=== PATIENT | female | born 1965 | race Caucasian/White ===

== ENCOUNTER 2018-09-18 11:43 | Day surgery (SDC) | payer OTHER ==
[~2018-09-18] VITALS: Ht 157.5 cm; Wt 66.3 kg
[2018-09-18 12:29] VITALS: Ht 157.5 cm; Wt 66.3 kg
[2018-09-18] MEDS ORDERED: FAMOTIDINE (12:40)
[2018-09-18] MEDS ORDERED: NITROGLYCERIN (12:40)
[2018-09-18] MEDS ORDERED: MULTIVITAMIN (12:40)
[2018-09-18] MEDS ORDERED: CETIRIZINE (12:40)
[2018-09-18] MEDS ORDERED: METFORMIN (12:40)
[2018-09-18 13:19] VITALS: BP 151/75; PULSE 62; RESP 18
--- NOTE | 2018-09-18 14:18 | PREAC ---
Date/Time of Note Date/Time of Note DATE: 09/18/18 TIME: 14:17 Anesthesia Eval and Record Evaluation Time Pre-Procedure Interview DATE: 09/18/18 TIME: 14:17 Age 52 Sex female NPO: 8 hrs Preoperative diagnosis heartburn, colorectal ca Planned procedure EGD colonoscopy Past Medical History Past Medical History: Includes Endo: Diabetes Surgery & Anesthesia Issues No known issue Meds Anticoagulation: No Beta Escobar within 24 hr: No Reason Beta Escobar not given: Pt. not on B-Escobar Reported Medications [Multivitamin] No Conflict Check 09/18/18 [Nitroglycerin] No Conflict Check 09/18/18 [Cetirizine] No Conflict Check 09/18/18 [Famotidine] No Conflict Check 09/18/18 [Metformin] No Conflict Check 09/18/18 Discontinued Reported Medications [None] No Conflict Check 01/24/10 Meds reviewed: Yes Allergies Coded Allergies: No Known Allergies (Verified Allergy, Unknown, 09/18/18) Allergies Reviewed: Yes Labs/Studies Labs Reviewed: Reviewed by anesthesiologist test: N/A Studies: ECG (n/a), CXR (n/a) Pre-procedure Exam Last vitals Vital Signs Date Temp Pulse Resp B/P (MAP) Pulse Ox O2 O2 Flow FiO2 Time Delivery Rate 09/18/18 97.9 62 18 151/75 97 Room Air 13:19 (100) Airway: Adequate mouth opening Mallampati: Mallampati I Teeth: Normal Lung: Normal Heart: Normal ASA Physical Status ASA physical status: 2 Emergency: None Planned Anesthetic General/MAC: MAC Planned Pain Management Parenteral pain med Pre-operative Attestations Prior to commencing anesthesia and surgery, the patient was re-evaluated, there was verification of: *The patient's identity *The results of appropriate recent lab work and preoperative vital signs *The above evaluation not changing prior to induction *Anesthetic plan, risk benefits, alternative and complications discussed with patient/family; questions answered; patient/family understands, accepts and wishes to proceed. DONAL WEBB MD September 18, 2018 14:18
[2018-09-18] MEDS ORDERED: PROPOFOL 20 ML ONE (14:20)
[2018-09-18] MEDS ORDERED: FENTAnyl 50 MCG/ML VIAL ONE (14:20)
[2018-09-18] MEDS ORDERED: ONDANSETRON 4 MG INJ IV PRN (14:30)
--- NOTE | 2018-09-18 15:07 | HPN ---
Date/Time of Note Date/Time of Note DATE: 09/18/18 TIME: 15:07 Interval H&P Admission Note Pt. seen H&P reviewed: No system changes SOLEDAD LORA September 18, 2018 15:07
[2018-09-18 15:35] VITALS: BP 127/67; PULSE 56; RESP 12
--- NOTE | 2018-09-19 08:15 | PAC ---
Date/Time of Note Date/Time of Note DATE: 09/19/18 TIME: 08:14 Post-Anesthesia Notes Post-Anesthesia Note Last documented vital signs Vital Signs Date Temp Pulse Resp B/P (MAP) Pulse Ox O2 O2 Flow FiO2 Time Delivery Rate 09/18/18 97.9 56 12 127/67 96 Room Air 15:35 (87) 09/18/18 97.9 13:19 Activity: WNL Respiratory function: WNL Cardiovascular function: WNL Mental status: Baseline Pain reasonably controlled: Yes Hydration appropriate: Yes Nausea/Vomiting absent: No DONAL WEBB MD September 19, 2018 08:15
== END 2018-09-18 15:53 | disposition home or self-care (01) ==
LOC: GIL 11:43
PROVIDERS: ATTEND Internal Medicine Gastroenterology
DX: Z12.11 Encounter for screening for malignant neoplasm of colon (principal); K64.8 Other hemorrhoids; E11.9 Type 2 diabetes mellitus without complications; Z79.84 Long term (current) use of oral hypoglycemic drugs
CPT/HCPCS: 43239; 45378; 82962; 88305; 88312; J3010; Z7610